=== PATIENT | male | born 1950 | race Caucasian/White ===

== ENCOUNTER 2017-11-09 14:57 | Inpatient (IN) | payer MEDICARE, OTHER ==
[~2017-11-09] VITALS: Ht 172.7 cm; Wt 73.6 kg
[2017-11-09 15:30] LABS: BASOPHILS # (AUTO) 0.1 X10'3 (0-0.2); BASOPHILS % (AUTO) 0.8 % (0-1); EOSINOPHILS # (AUTO) 0.2 X10'3 (0-0.9); EOSINOPHILS % (AUTO) 2.1 % (0-6); HEMATOCRIT 47.3 % (42.0-52.0); LYMPHOCYTES # (AUTO) 3.9 X10'3 (1.1-4.8); LYMPHOCYTES % (AUTO) 40.2 % (21-51); MEAN CORPUSCULAR HEMOGLOBIN 30.9 PG (27.0-31.0); MEAN CORPUSCULAR HGB CONC 33.8 % (33.0-36.5); MEAN CORPUSCULAR VOLUME 91.6 FL (78-98); MEAN PLATELET VOLUME 7.6 FL (7.4-10.4); MONOCYTES # (AUTO) 0.6 X10'3 (0-0.9); NEUTROPHILS # (AUTO) 4.9 X10'3 (1.8-7.7); NEUTROPHILS % (AUTO) 50.9 % (42-75); PLATELET COUNT 208 X10'3 (140-440); RED BLOOD COUNT 5.17 X10'6 (4.70-6.10); RED CELL DISTRIBUTION WIDTH 14.9 % (11.5-14.5); WHITE BLOOD COUNT 9.7 X10'3 (4.5-11.0)
[2017-11-09] MEDS ORDERED: nitroGLYCERIN 0.4mg SUBLingual tab SL PRN ×2 (15:40→17:05)
[2017-11-09] MEDS ORDERED: ondansetron/PF 4mg/2ml inj IV ONE (15:40)
[2017-11-09] MEDS ORDERED: MORPHINE 2MG in 2ml NS syringe IV PRN ×2 (15:40→17:05)
[2017-11-09 15:45] LABS: ALANINE AMINOTRANSFERASE 18 U/L (12-78); ALBUMIN 3.7 G/DL (3.4-5.0); ALBUMIN/GLOBULIN RATIO 0.9 (1.1-1.5); ALKALINE PHOSPHATASE 133 IU/L (46-116); ANION GAP 11 (8-16); ASPARTATE AMINO TRANSFERASE 17 U/L (10-37); BILIRUBIN,TOTAL 0.4 MG/DL (0.1-1.0); BLOOD UREA NITROGEN 12 MG/DL (7-18); BUN/CREATININE RATIO 12.6 (5.4-32.0); CHLORIDE 105 MMOL/L (99-107); CREATININE 0.95 MG/DL (0.60-1.10); GLUCOSE 69 MG/DL (70-104); SODIUM 143 MMOL/L (135-145); TOTAL CARBON DIOXIDE 27.1 MMOL/L (24-32); TOTAL PROTEIN 7.9 G/DL (6.4-8.2); eGFR 79 ML/MIN
[2017-11-09 16:29] LABS: PARTIAL THROMBOPLASTIN TIME 26 SECONDS (22-32); PROTHROMBIN TIME 10.2 SECONDS (9.0-12.0)
[2017-11-09] MEDS ORDERED: LISI40TA4 PO (16:44)
[2017-11-09] MEDS ORDERED: CLOP75TA15 PO (16:44)
[2017-11-09] MEDS ORDERED: magnesium Cl slow-release 64mg tablet PO PRN (17:05)
[2017-11-09] MEDS ORDERED: regadenoson 0.4mg/5ml syringe IV ONE (17:05)
[2017-11-09] MEDS ORDERED: mag hydrox/Alum hydrox/simeth 30ml oral suspension PO PRN (17:05)
[2017-11-09] MEDS ORDERED: potassium Cl 20 mEq SR tablet PO PRN ×2 (17:05)
[2017-11-09] MEDS ORDERED: magnesium 2GM in 50ml NS 50 ML IV PRN (17:05)
[2017-11-09] MEDS ORDERED: HYDROcodone/acetaminophen 10/325mg tab PO PRN (17:05)
[2017-11-09] MEDS ORDERED: magnesium 4gm in 100ml NS 100 ML IV PRN (17:05)
[2017-11-09] MEDS ORDERED: acetaminophen 325mg tablet PO PRN (17:05)
[2017-11-09] MEDS ORDERED: ondansetron/PF 4mg/2ml inj IV PRN (17:05)
[2017-11-09] MEDS ORDERED: aminophylline 250mg/10ml inj. IV PRN (17:05)
[2017-11-09] MEDS ORDERED: metoprolol tartrate 1mg/ml inj IV PRN (17:05)
[2017-11-09] MEDS ORDERED: magnesium hydroxide 30ml (MOM) UD suspension PO PRN (17:05)
[2017-11-09] MEDS ORDERED: potassium Cl 40MEQ/NS 500ml 500 ML IV PRN ×2 (17:05)
[2017-11-10] VITALS (8 sets, daily range): BP systolic 117–157; BP diastolic 62–90
[2017-11-10 03:43] LABS: BASOPHILS # (AUTO) 0.1 X10'3 (0-0.2); BASOPHILS % (AUTO) 0.9 % (0-1); EOSINOPHILS # (AUTO) 0.2 X10'3 (0-0.9); EOSINOPHILS % (AUTO) 2.9 % (0-6); HEMATOCRIT 42.9 % (42.0-52.0); HEMOGLOBIN 14.6 g/dl (14.0-17.9); LYMPHOCYTES # (AUTO) 3.3 X10'3 (1.1-4.8); LYMPHOCYTES % (AUTO) 39.8 % (21-51); MEAN CORPUSCULAR VOLUME 91.3 FL (78-98); MEAN PLATELET VOLUME 7.8 FL (7.4-10.4); MONOCYTES # (AUTO) 0.6 X10'3 (0-0.9); MONOCYTES % (AUTO) 6.7 % (2-12); NEUTROPHILS # (AUTO) 4.1 X10'3 (1.8-7.7); NEUTROPHILS % (AUTO) 49.7 % (42-75); PLATELET COUNT 175 X10'3 (140-440); RED CELL DISTRIBUTION WIDTH 14.9 % (11.5-14.5); WHITE BLOOD COUNT 8.3 X10'3 (4.5-11.0)
[2017-11-10 04:01] LABS: ALBUMIN 3.2 G/DL (3.4-5.0); ANION GAP 11 (8-16); BLOOD UREA NITROGEN 17 MG/DL (7-18); BUN/CREATININE RATIO 17.7 (5.4-32.0); CALCIUM 8.8 MG/DL (8.5-10.1); CHLORIDE 107 MMOL/L (99-107); CREATININE 0.96 MG/DL (0.60-1.10); GLUCOSE 97 MG/DL (70-104); MAGNESIUM 1.8 MG/DL (1.5-2.4); POTASSIUM 4.1 MMOL/L (3.5-5.1); SODIUM 144 MMOL/L (135-145); TOTAL CARBON DIOXIDE 26.5 MMOL/L (24-32); eGFR 78 ML/MIN
[2017-11-10] MEDS ORDERED: clopidogrel 75mg tablet PO SCH (08:00)
[2017-11-10] MEDS ORDERED: K and/or MAG REPLACEMENT MC SCH (08:00)
[2017-11-10] MEDS ORDERED: aminophylline 250mg/10ml inj. IV PRN (08:00)
[2017-11-10] MEDS ORDERED: enoxaparin 40mg/0.4ml syringe SUBCUT SCH (08:00)
[2017-11-10] MEDS ORDERED: regadenoson 0.4mg/5ml syringe IV ONE ×3 (08:00→09:50)
[2017-11-10] MEDS ORDERED: nitroGLYCERIN 0.4mg SUBLingual tab SL PRN (08:00)
[2017-11-10] MEDS ORDERED: lisinopril 20mg tablet PO SCH (08:00)
[2017-11-10] MEDS ORDERED: metoprolol tartrate 1mg/ml inj IV PRN (08:00)
[2017-11-10] MEDS ORDERED: aminophylline inj. 0 ML IV ONE (08:44)
[2017-11-10] MEDS ORDERED: normal saline 1000ml 1,000 ML IV SCH (11:05)
== END 2017-11-10 19:12 | disposition home or self-care (01) | DRG 303 ==
LOC: ER 14:57 → ED HOLD 17:03 → PCU 3S 11-10 13:37
PROVIDERS: ADMIT Internal Medicine; ATTEND Internal Medicine
PROC: 4A02XM4 Measurement of Cardiac Total Activity, External Approach (ICD-10-PCS; principal; 2017-11-10)
PROC: 3E073KZ Introduction of Other Diagnostic Substance into Coronary Artery, Percutaneous Approach (ICD-10-PCS; 2017-11-10)
DX: I25.118 Atherosclerotic heart disease of native coronary artery with other forms of angina pectoris (principal); F17.200 Nicotine dependence, unspecified, uncomplicated; I10 Essential (primary) hypertension; I25.2 Old myocardial infarction; Z95.5 Presence of coronary angioplasty implant and graft; Z79.02 Long term (current) use of antithrombotics/antiplatelets; Z79.899 Other long term (current) drug therapy; Z71.6 Tobacco abuse counseling
CPT/HCPCS: 36415; 71045; 78452; 80048; 80053; 83735; 84484; 85025; 85610; 85730; 93005; 93017; 96374; 99285; A9500; J0280; J2274; J2405; J7030

== ENCOUNTER 2017-11-15 21:48 | Emergency (ER) | payer MEDICARE, OTHER ==
[~2017-11-15] VITALS: Ht 172.7 cm; Wt 75.0 kg
[~2017-11-15 21:48] MED LIST: CLOP75TA15 PO; LISI40TA4 PO
[2017-11-16 02:08] VITALS: BP 108/71
== END 2017-11-16 02:10 | disposition home or self-care (01) ==
LOC: ER 21:48
DX: R07.89 Other chest pain (principal); I10 Essential (primary) hypertension; G89.29 Other chronic pain
CPT/HCPCS: 36415; 84484; 93005; 99285

== ENCOUNTER 2018-06-06 13:15 | Emergency (ER) | payer MEDICARE, OTHER ==
[~2018-06-06] VITALS: Ht 165.1 cm; Wt 74.0 kg
[~2018-06-06 13:15] MED LIST changes: +ASPI-1265 PO; +ATOR20TA66 PO; +COR3.125T PO; +THI100T PO
[2018-06-06 13:51] LABS: BASOPHILS # (AUTO) 0.1 X10'3 (0-0.2); BASOPHILS % (AUTO) 0.7 % (0-1); EOSINOPHILS # (AUTO) 0.2 X10'3 (0-0.9); EOSINOPHILS % (AUTO) 1.8 % (0-6); HEMATOCRIT 39.8 % (42.0-52.0); HEMOGLOBIN 13.4 g/dl (14.0-17.9); LYMPHOCYTES # (AUTO) 2.8 X10'3 (1.1-4.8); LYMPHOCYTES % (AUTO) 33.2 % (21-51); MEAN CORPUSCULAR HEMOGLOBIN 29.4 PG (27.0-31.0); MEAN CORPUSCULAR HGB CONC 33.6 % (33.0-36.5); MEAN CORPUSCULAR VOLUME 87.6 FL (78-98); MEAN PLATELET VOLUME 7.8 FL (7.4-10.4); MONOCYTES # (AUTO) 0.5 X10'3 (0-0.9); MONOCYTES % (AUTO) 6.5 % (2-12); NEUTROPHILS # (AUTO) 4.8 X10'3 (1.8-7.7); NEUTROPHILS % (AUTO) 57.8 % (42-75); PLATELET COUNT 277 X10'3 (140-440); RED BLOOD COUNT 4.54 X10'6 (4.70-6.10); RED CELL DISTRIBUTION WIDTH 15.2 % (11.5-14.5); WHITE BLOOD COUNT 8.3 X10'3 (4.5-11.0)
[2018-06-06 14:07] LABS: ALANINE AMINOTRANSFERASE 28 U/L (12-78); ALBUMIN 3.5 G/DL (3.4-5.0); ALKALINE PHOSPHATASE 105 IU/L (46-116); ANION GAP 9 (8-16); ASPARTATE AMINO TRANSFERASE 24 U/L (10-37); BILIRUBIN,TOTAL 0.3 MG/DL (0.1-1.0); BLOOD UREA NITROGEN 21 MG/DL (7-18); BUN/CREATININE RATIO 24.4 (5.4-32.0); CALCIUM 8.7 MG/DL (8.5-10.1); CHLORIDE 105 MMOL/L (99-107); CREATININE 0.86 MG/DL (0.60-1.10); GLUCOSE 98 MG/DL (70-104); POTASSIUM 3.5 MMOL/L (3.5-5.1); SODIUM 141 MMOL/L (135-145); TOTAL CARBON DIOXIDE 26.6 MMOL/L (24-32); eGFR 88 ML/MIN
[2018-06-06 14:10] LABS: PARTIAL THROMBOPLASTIN TIME 26 SECONDS (22-32); PROTHROMBIN TIME 10.4 SECONDS (9.0-12.0)
[2018-06-06] MEDS ORDERED: ketorolac trometh. 30mg/ml inj. IV ONE (15:20)
[2018-06-06] MEDS ORDERED: morphine 4 MG/ML inj SYRINge IV PRN (15:20)
[2018-06-06 18:12] VITALS: BP 101/65
== END 2018-06-06 18:14 | disposition home or self-care (01) ==
LOC: ER 13:16
DX: R07.9 Chest pain, unspecified (principal); I25.10 Atherosclerotic heart disease of native coronary artery without angina pectoris; I10 Essential (primary) hypertension; G89.29 Other chronic pain; Z98.62 Peripheral vascular angioplasty status; F17.200 Nicotine dependence, unspecified, uncomplicated; Z79.82 Long term (current) use of aspirin; Z79.899 Other long term (current) drug therapy
CPT/HCPCS: 36415; 71045; 80053; 84484; 85025; 85610; 85730; 93005; 96374; 96375; 99285; J1885; J2270

== ENCOUNTER 2018-07-30 20:36 | Emergency (ER) | payer MEDICARE, OTHER ==
[~2018-07-30] VITALS: Ht 172.7 cm; Wt 73.0 kg
[2018-07-30] MEDS ORDERED: ibuprofen tablet 400 MG TABLET PO ONE (21:25)
[2018-07-30 21:55] VITALS: BP 157/78
== END 2018-07-30 21:57 | disposition home or self-care (01) ==
LOC: ER 20:37
DX: M94.0 Chondrocostal junction syndrome [Tietze] (principal); I25.10 Atherosclerotic heart disease of native coronary artery without angina pectoris; I10 Essential (primary) hypertension; G89.29 Other chronic pain; F17.200 Nicotine dependence, unspecified, uncomplicated; Z98.61 Coronary angioplasty status; Z90.49 Acquired absence of other specified parts of digestive tract; Z79.82 Long term (current) use of aspirin; Z79.899 Other long term (current) drug therapy
CPT/HCPCS: 93005; 99283

== ENCOUNTER 2018-08-12 12:45 | Emergency (ER) | payer MEDICARE, OTHER ==
[~2018-08-12] VITALS: Ht 172.7 cm; Wt 73.6 kg
[2018-08-12] MEDS ORDERED: aspirin 81mg tab.chew PO ONE (13:05)
[2018-08-12 14:13] LABS: BASOPHILS # (AUTO) 0.1 X10'3 (0-0.2); BASOPHILS % (AUTO) 0.5 % (0-1); EOSINOPHILS # (AUTO) 0.2 X10'3 (0-0.9); EOSINOPHILS % (AUTO) 1.9 % (0-6); HEMATOCRIT 49.4 % (42.0-52.0); HEMOGLOBIN 16.2 g/dl (14.0-17.9); LYMPHOCYTES # (AUTO) 4.2 X10'3 (1.1-4.8); MEAN CORPUSCULAR HEMOGLOBIN 29.1 PG (27.0-31.0); MEAN CORPUSCULAR HGB CONC 32.8 % (33.0-36.5); MEAN CORPUSCULAR VOLUME 88.8 FL (78-98); MEAN PLATELET VOLUME 7.5 FL (7.4-10.4); MONOCYTES # (AUTO) 0.5 X10'3 (0-0.9); MONOCYTES % (AUTO) 4.5 % (2-12); NEUTROPHILS # (AUTO) 5.1 X10'3 (1.8-7.7); NEUTROPHILS % (AUTO) 51.1 % (42-75); PLATELET COUNT 244 X10'3 (140-440); RED BLOOD COUNT 5.56 X10'6 (4.70-6.10); WHITE BLOOD COUNT 9.9 X10'3 (4.5-11.0)
[2018-08-12 14:30] LABS: ALANINE AMINOTRANSFERASE 18 U/L (12-78); ALBUMIN 4.4 G/DL (3.4-5.0); ALBUMIN/GLOBULIN RATIO 0.9 (1.1-1.5); ALKALINE PHOSPHATASE 174 IU/L (46-116); ANION GAP 13 (8-16); ASPARTATE AMINO TRANSFERASE 13 U/L (10-37); BILIRUBIN,TOTAL 0.2 MG/DL (0.1-1.0); BLOOD UREA NITROGEN 13 MG/DL (7-18); BUN/CREATININE RATIO 14.6 (5.4-32.0); CALCIUM 8.8 MG/DL (8.5-10.1); CHLORIDE 103 MMOL/L (99-107); CREATININE 0.89 MG/DL (0.60-1.10); GLUCOSE 82 MG/DL (70-104); POTASSIUM 4.5 MMOL/L (3.5-5.1); SODIUM 142 MMOL/L (135-145); TOTAL CARBON DIOXIDE 26.2 MMOL/L (24-32); TOTAL PROTEIN 9.2 G/DL (6.4-8.2); eGFR 85 ML/MIN
[2018-08-12 14:39] LABS: MAGNESIUM 2.2 MG/DL (1.5-2.4)
[2018-08-12 15:27] VITALS: BP 120/70
== END 2018-08-12 15:31 | disposition home or self-care (01) ==
LOC: ER 12:45
DX: R07.89 Other chest pain (principal); F10.129 Alcohol abuse with intoxication, unspecified; I25.10 Atherosclerotic heart disease of native coronary artery without angina pectoris; I10 Essential (primary) hypertension; G89.29 Other chronic pain; Z98.61 Coronary angioplasty status; Z90.49 Acquired absence of other specified parts of digestive tract; Z98.890 Other specified postprocedural states; Z79.82 Long term (current) use of aspirin; Z79.01 Long term (current) use of anticoagulants; Z79.899 Other long term (current) drug therapy; Y90.9 Presence of alcohol in blood, level not specified
CPT/HCPCS: 36415; 71045; 80053; 83735; 83880; 84484; 85025; 93005; 99284

== ENCOUNTER 2018-09-21 11:17 | Emergency (ER) | payer MEDICARE, OTHER ==
[~2018-09-21] VITALS: Ht 172.7 cm; Wt 72.7 kg
--- NOTE | 2018-09-21 12:15 | NUR ---
assumed care of pt from Misha SALMERON
[2018-09-21] MEDS ORDERED: acetaminophen 325mg tablet PO ONE (12:55)
[2018-09-21] MEDS ORDERED: LIDOcaine 5% patch TP ONE (12:55)
[2018-09-21] MEDS ORDERED: ketorolac trometh. 30mg/ml inj. IM ONE (12:55)
--- NOTE | 2018-09-21 13:26 | NUR ---
labs drawn, pt up at bedside to use urinal without assist
[2018-09-21 13:38] LABS: BASOPHILS # (AUTO) 0.1 X10'3 (0-0.2); BASOPHILS % (AUTO) 0.8 % (0-1); EOSINOPHILS # (AUTO) 0.2 X10'3 (0-0.9); EOSINOPHILS % (AUTO) 2.1 % (0-6); HEMATOCRIT 41.3 % (42.0-52.0); HEMOGLOBIN 13.9 g/dl (14.0-17.9); LYMPHOCYTES # (AUTO) 2.8 X10'3 (1.1-4.8); LYMPHOCYTES % (AUTO) 35.3 % (21-51); MEAN CORPUSCULAR HEMOGLOBIN 29.8 PG (27.0-31.0); MEAN CORPUSCULAR HGB CONC 33.8 g/dL (33.0-36.5); MEAN CORPUSCULAR VOLUME 88.2 FL (78-98); MEAN PLATELET VOLUME 7.3 FL (7.4-10.4); MONOCYTES # (AUTO) 0.5 X10'3 (0-0.9); MONOCYTES % (AUTO) 5.6 % (2-12); NEUTROPHILS # (AUTO) 4.5 X10'3 (1.8-7.7); NEUTROPHILS % (AUTO) 56.2 % (42-75); PLATELET COUNT 252 X10'3 (140-440); RED BLOOD COUNT 4.69 X10'6 (4.70-6.10); WHITE BLOOD COUNT 8.1 X10'3 (4.5-11.0)
[2018-09-21 13:49] LABS: ALANINE AMINOTRANSFERASE 17 U/L (12-78); ALBUMIN 3.7 G/DL (3.4-5.0); ALBUMIN/GLOBULIN RATIO 0.9 (1.1-1.5); ALKALINE PHOSPHATASE 113 IU/L (46-116); ANION GAP 9 (8-16); ASPARTATE AMINO TRANSFERASE 10 U/L (10-37); BILIRUBIN,TOTAL 0.3 MG/DL (0.1-1.0); BLOOD UREA NITROGEN 26 MG/DL (7-18); BUN/CREATININE RATIO 33.8 (5.4-32.0); CALCIUM 8.5 MG/DL (8.5-10.1); CHLORIDE 105 MMOL/L (99-107); CREATININE 0.77 MG/DL (0.60-1.10); GLUCOSE 94 MG/DL (70-104); POTASSIUM 3.9 MMOL/L (3.5-5.1); SODIUM 141 MMOL/L (135-145); TOTAL CARBON DIOXIDE 27.1 MMOL/L (24-32); TOTAL PROTEIN 7.8 G/DL (6.4-8.2); eGFR > 90 ML/MIN
[2018-09-21 13:53] LABS: CLARITY,URINE CLEAR (Clear); COLOR,URINE STRAW (Yellow); GLUCOSE, URINE NEGATIVE (Neg); KETONES,URINE NEGATIVE (Neg); LEUKOCYTE ESTERASE ,URINE TRACE (Neg); NITRITES, URINE NEGATIVE (Neg); OCCULT BLOOD,URINE NEGATIVE (Neg); PH,URINE 5.5 (4.8-8.0); PROTEIN,URINE NEGATIVE (Neg); UROBILINOGEN,URINE 0.2 E.U/dL (0.2-1.0)
[2018-09-21 14:02] LABS: UA COLLECTION TYPE CLN CATCH MIDSTREAM
[2018-09-21 14:03] LABS: BACTERIA,URINE FEW /HPF (Neg); RBC,URINE 0-2 /HPF (0-2); SQUAMOUS EPITHELIAL CELL,UR FEW /LPF (FEW); WBC,URINE 0-4 /HPF (0-4)
[2018-09-21] MEDS ORDERED: ACET-812 PO (14:10)
[2018-09-21] MEDS ORDERED: FLO0.4C PO (14:10)
[2018-09-21 14:23] VITALS: BP 102/64
--- NOTE | 2018-09-21 14:24 | NUR ---
PT SAYS HE HAS NO RIDE HOME, IS BLIND, HIS CANNOT DRIVE AND HIS NEIGHBOR DRINKS TOO MUCH "I DON'T TRUST HIM" AND HAS NO MONEY FOR A TAXI, PT WOULD ALSO LIKE TO STOP AT 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
== END 2018-09-21 14:27 | disposition home or self-care (01) ==
LOC: ER 11:17
DX: G89.29 Other chronic pain (principal); M54.5 Low back pain; I25.10 Atherosclerotic heart disease of native coronary artery without angina pectoris; I10 Essential (primary) hypertension; Z98.61 Coronary angioplasty status; Z90.49 Acquired absence of other specified parts of digestive tract; Z98.890 Other specified postprocedural states; Z79.82 Long term (current) use of aspirin; Z79.01 Long term (current) use of anticoagulants; Z79.899 Other long term (current) drug therapy
CPT/HCPCS: 36415; 74176; 80053; 81001; 85025; 87088; 96372; 99284; J1885

== ENCOUNTER 2018-10-02 19:44 | Emergency (ER) | payer MEDICARE, OTHER ==
[~2018-10-02] VITALS: Ht 167.6 cm; Wt 65.0 kg
[~2018-10-02 19:44] MED LIST changes: +ACET-812 PO; +FLO0.4C PO
[2018-10-02 19:50] VITALS: BP 163/88
--- NOTE | 2018-10-02 22:10 | NUR ---
NO RESPONSE FROM LOBBY AFTER 3 ATTEMOTS TO ROOM. CALL PLACED TO NUMBER ON FILE WITH MESSAGE LEFT EXPRESSING CONCERN FOR PATIENTS WELL BEING, AND ENCOURAGEMENT TO RETURN TO THE ED FOR EVAL. DR. ASHTON INFORMED.
== END 2018-10-02 22:28 | disposition left against medical advice (07) ==
LOC: ER 19:45
DX: R15.9 Full incontinence of feces (principal); Z53.21 Procedure and treatment not carried out due to patient leaving prior to being seen by health care provider

== ENCOUNTER 2019-01-13 23:29 | Emergency (ER) | payer MEDICARE, OTHER ==
[~2019-01-13] VITALS: Ht 172.7 cm; Wt 75.0 kg
[~2019-01-13 23:29] MED LIST changes: -ACET-812 PO; -FLO0.4C PO
--- NOTE | 2019-01-13 23:40 | NUR ---
Pt requested blanket and pillow. warm blanket and pillow provided.
[2019-01-13] MEDS ORDERED: LISI-600 PO (23:52)
[2019-01-14 01:59] VITALS: BP 85/60
== END 2019-01-14 02:15 | disposition home or self-care (01) ==
LOC: ER 23:30
DX: S00.81XA Abrasion of other part of head, initial encounter (principal); I25.10 Atherosclerotic heart disease of native coronary artery without angina pectoris; I10 Essential (primary) hypertension; G89.29 Other chronic pain; M54.9 Dorsalgia, unspecified; Z95.1 Presence of aortocoronary bypass graft; Z79.82 Long term (current) use of aspirin; W01.198A Fall on same level from slipping, tripping and stumbling with subsequent striking against other object, initial encounter; Y93.89 Activity, other specified; Y92.89 Other specified places as the place of occurrence of the external cause; Y99.8 Other external cause status
CPT/HCPCS: 70450; 72125; 99284

== ENCOUNTER 2019-07-10 12:11 | Emergency (ER) | payer MEDICARE ==
[~2019-07-10] VITALS: Ht 172.7 cm; Wt 72.0 kg
[~2019-07-10 12:11] MED LIST changes: -CLOP75TA15 PO; -COR3.125T PO; +LISI-600 PO; -LISI40TA4 PO; -THI100T PO
[2019-07-10 13:24] LABS: CLARITY,URINE CLEAR (Clear); COLOR,URINE YELLOW (Yellow); GLUCOSE, URINE NEGATIVE (Neg); KETONES,URINE NEGATIVE (Neg); LEUKOCYTE ESTERASE ,URINE NEGATIVE (Neg); NITRITES, URINE NEGATIVE (Neg); OCCULT BLOOD,URINE NEGATIVE (Neg); PROTEIN,URINE NEGATIVE (Neg); UROBILINOGEN,URINE 0.2 E.U/dL (0.2-1.0)
[2019-07-10 13:27] LABS: UA COLLECTION TYPE CLN CATCH MIDSTREAM
[2019-07-10] MEDS ORDERED: normal saline 1000ML IV soln IVB ONE (14:15)
[2019-07-10 14:22] LABS: BASOPHILS # (AUTO) 0.1 X10'3 (0-0.2); BASOPHILS % (AUTO) 1.2 % (0-1); EOSINOPHILS # (AUTO) 0.1 X10'3 (0-0.9); EOSINOPHILS % (AUTO) 0.6 % (0-6); HEMATOCRIT 43.3 % (42.0-52.0); HEMOGLOBIN 14.3 g/dl (14.0-17.9); LYMPHOCYTES # (AUTO) 3.2 X10'3 (1.1-4.8); LYMPHOCYTES % (AUTO) 33.5 % (21-51); MEAN CORPUSCULAR HEMOGLOBIN 30.1 PG (27.0-31.0); MEAN CORPUSCULAR HGB CONC 33.1 g/dL (33.0-36.5); MEAN CORPUSCULAR VOLUME 91.1 FL (78-98); MEAN PLATELET VOLUME 7.7 FL (7.4-10.4); MONOCYTES # (AUTO) 0.9 X10'3 (0-0.9); NEUTROPHILS # (AUTO) 5.3 X10'3 (1.8-7.7); NEUTROPHILS % (AUTO) 55.7 % (42-75); PLATELET COUNT 128 X10'3 (140-440); RED BLOOD COUNT 4.75 X10'6 (4.70-6.10); RED CELL DISTRIBUTION WIDTH 15.7 % (11.5-14.5); WHITE BLOOD COUNT 9.6 X10'3 (4.5-11.0)
[2019-07-10 14:35] LABS: ALANINE AMINOTRANSFERASE 17 U/L (12-78); ALBUMIN 3.2 G/DL (3.4-5.0); ALBUMIN/GLOBULIN RATIO 0.8 (1.1-1.5); ALKALINE PHOSPHATASE 144 IU/L (46-116); ANION GAP 10 (8-16); ASPARTATE AMINO TRANSFERASE 20 U/L (10-37); BILIRUBIN,TOTAL 0.6 MG/DL (0.1-1.0); BLOOD UREA NITROGEN 10 MG/DL (7-18); BUN/CREATININE RATIO 11.8 (5.4-32.0); CALCIUM 8.6 MG/DL (8.5-10.1); CHLORIDE 103 MMOL/L (99-107); CREATININE 0.85 MG/DL (0.60-1.10); ETHANOL 0.159 GM/DL (0.0-0.010); GLUCOSE 98 MG/DL (70-104); LIPASE 165 U/L (73-393); MAGNESIUM 1.9 MG/DL (1.5-2.4); POTASSIUM 4.1 MMOL/L (3.5-5.1); SODIUM 140 MMOL/L (135-145); TOTAL CARBON DIOXIDE 27.1 MMOL/L (24-32); TOTAL PROTEIN 7.3 G/DL (6.4-8.2); eGFR 89 ML/MIN
[2019-07-10 14:40] LABS: URINE AMPHETAMINE SCREEN NEGATIVE (Neg); URINE BARBITUATE SCREEN NEGATIVE (Neg); URINE BENZODIAZEPINES SCREEN NEGATIVE (Neg); URINE CANNABINOID SCREEN NEGATIVE (Neg); URINE COCAINE SCREEN NEGATIVE (Neg); URINE METHADONE SCREEN NEGATIVE (Neg); URINE OPIATE SCREEN NEGATIVE (Neg); URINE PHENCYCLIDINE SCREEN NEGATIVE (Neg)
[2019-07-10] MEDS ORDERED: ketorolac trometh. 30mg/ml inj. IV ONE (14:50)
[2019-07-10 15:42] VITALS: BP 140/82
== END 2019-07-10 15:47 | disposition home or self-care (01) ==
LOC: ER 12:11
DX: M79.605 Pain in left leg (principal); R19.7 Diarrhea, unspecified; F10.920 Alcohol use, unspecified with intoxication, uncomplicated; I25.10 Atherosclerotic heart disease of native coronary artery without angina pectoris; I10 Essential (primary) hypertension; G89.29 Other chronic pain; Z95.5 Presence of coronary angioplasty implant and graft; Z90.49 Acquired absence of other specified parts of digestive tract; Z98.890 Other specified postprocedural states; Z79.82 Long term (current) use of aspirin; Z79.899 Other long term (current) drug therapy; Y90.0 Blood alcohol level of less than 20 mg/100 ml; X58.XXXA Exposure to other specified factors, initial encounter; Y93.89 Activity, other specified; Y92.89 Other specified places as the place of occurrence of the external cause; Y99.8 Other external cause status
CPT/HCPCS: 36415; 80053; 80305; 80320; 81003; 83690; 83735; 85025; 96361; 96374; 99284; J1885; J7030

== ENCOUNTER 2021-06-02 11:37 | Inpatient (IN) | payer OTHER, BC ==
[~2021-06-02] VITALS: Ht 172.7 cm; Wt 80.7 kg
[~2021-06-02 11:37] MED LIST changes: -LISI-600 PO; +LISI20TA28 PO
[2021-06-02] MEDS: heparin 25,000 UNIT/250ml bag 250 ML IV SCH ×2 (12:15→22:03)
[2021-06-02] MEDS ORDERED: heparin 10,000 units/1 ML INJ IV ONE ×3 (12:15→14:10)
[2021-06-02] MEDS ORDERED: iohexol 350MG/ML 100ml bottle IV ONE (12:16)
[2021-06-02] MEDS ORDERED: morphine 10mg/ml inj. IV ONE (12:20)
[2021-06-02] MEDS ORDERED: iohexol 350 MG/ML 50ML vial IV ONE (12:26)
[2021-06-02 12:54] LABS: BASOPHILS # (AUTO) 0.2 X10'3 (0-0.2); BASOPHILS % (AUTO) 0.6 % (0-1); EOSINOPHILS % (AUTO) 0.2 % (0-6); HEMATOCRIT 30.4 % (42.0-52.0); HEMOGLOBIN 9.5 g/dl (14.0-17.9); LYMPHOCYTES # (AUTO) 2.8 X10'3 (1.1-4.8); LYMPHOCYTES % (AUTO) 10.2 % (21-51); MEAN CORPUSCULAR HEMOGLOBIN 24.3 PG (27.0-31.0); MEAN CORPUSCULAR HGB CONC 31.1 g/dL (33.0-36.5); MEAN CORPUSCULAR VOLUME 78.2 FL (78-98); MEAN PLATELET VOLUME 8.1 FL (7.4-10.4); MONOCYTES # (AUTO) 2.4 X10'3 (0-0.9); MONOCYTES % (AUTO) 8.7 % (2-12); NEUTROPHILS # (AUTO) 22.1 X10'3 (1.8-7.7); NEUTROPHILS % (AUTO) 80.3 % (42-75); PLATELET COUNT 347 X10'3 (140-440); RED BLOOD COUNT 3.89 X10'6 (4.70-6.10); RED CELL DISTRIBUTION WIDTH 14.9 % (11.5-14.5)
[2021-06-02 13:00] LABS: WHITE BLOOD COUNT 27.5 X10'3 (4.5-11.0)
[2021-06-02 13:06] LABS: PARTIAL THROMBOPLASTIN TIME 21 SECONDS (22-32)
[2021-06-02 13:08] LABS: ALANINE AMINOTRANSFERASE 11 U/L (12-78); ALBUMIN 2.6 G/DL (3.4-5.0); ALBUMIN/GLOBULIN RATIO 0.5 (1.1-1.5); ALKALINE PHOSPHATASE 92 IU/L (46-116); ANION GAP 14 (8-16); ASPARTATE AMINO TRANSFERASE 17 U/L (10-37); BILIRUBIN,TOTAL 0.3 MG/DL (0.1-1.0); BLOOD UREA NITROGEN 19 MG/DL (7-18); BUN/CREATININE RATIO 18.4 (5.4-32.0); CALCIUM 10.4 MG/DL (8.5-10.1); CHLORIDE 101 MMOL/L (99-107); CREATININE 1.03 MG/DL (0.60-1.10); GLUCOSE 179 MG/DL (70-104); POTASSIUM 3.9 MMOL/L (3.5-5.1); SODIUM 139 MMOL/L (135-145); TOTAL PROTEIN 7.5 G/DL (6.4-8.2); eGFR 71 ML/MIN
[2021-06-02 13:28] LABS: TOTAL CELLS COUNTED 100
[2021-06-02 13:29] LABS: MICROCYTOSIS 1+; PLATELET ESTIMATE NORMAL
[2021-06-02 13:30] LABS: BURR CELLS FEW
[2021-06-02] MEDS ORDERED: METR-159 PO (13:32)
[2021-06-02] MEDS ORDERED: HYDR4TAB45 PO (13:36)
[2021-06-02] MEDS ORDERED: acetaminophen 650mg rectal suppository RC PRN (14:10)
[2021-06-02] MEDS ORDERED: PERFLUTREN PROTEIN-A MICROSPHR (Optison) 0.22 MG/ML 3ML VIAL IV PRN (14:10)
[2021-06-02] MEDS ORDERED: potassium Cl 40MEQ/1/2NS 520ml 520 ML IV PRN ×2 (14:10)
[2021-06-02] MEDS ORDERED: ondansetron/PF 4mg/2ml inj IV PRN (14:10)
[2021-06-02] MEDS ORDERED: heparin 10,000 units/1 ML INJ IV PRN (14:10)
[2021-06-02] MEDS ORDERED: acetaminophen 325mg tablet PO PRN ×2 (14:10)
[2021-06-02] MEDS ORDERED: magnesium Cl slow-release 64mg tablet PO PRN (14:10)
[2021-06-02] MEDS ORDERED: heparin 25,000 UNIT/250ml bag 250 ML IV SCH (14:10)
[2021-06-02] MEDS ORDERED: mag hydrox/Alum hydrox/simeth 30ml oral suspension PO PRN (14:10)
[2021-06-02] MEDS ORDERED: potassium Cl 20 mEq SR tablet PO PRN ×2 (14:10)
[2021-06-02] MEDS ORDERED: magnesium hydroxide 30ml (MOM) UD suspension PO PRN (14:10)
[2021-06-02] MEDS ORDERED: HYDROcodone/acetaminophen 5mg/325mg tablet PO PRN (14:10)
[2021-06-02] MEDS ORDERED: magnesium 4gm in 100ml NS 100 ML IV PRN (14:10)
[2021-06-02] MEDS ORDERED: magnesium 2GM in 50ml NS 50 ML IV PRN (14:10)
[2021-06-02] MEDS: heparin 10,000 units/1 ML INJ IV PRN ×2 (14:22→21:57)
[2021-06-02] MEDS ORDERED: LEVO750T46 PO (14:41)
[2021-06-02 15:37] LABS: CLARITY,URINE SLIGHTLY CLOUDY (Clear); COLOR,URINE YELLOW (Yellow); GLUCOSE, URINE NEGATIVE (Neg); KETONES,URINE NEGATIVE (Neg); NITRITES, URINE NEGATIVE (Neg); OCCULT BLOOD,URINE TRACE-INTACT (Neg); PROTEIN,URINE NEGATIVE (Neg); UA COLLECTION TYPE VOIDED
[2021-06-02 15:38] LABS: LEUKOCYTE ESTERASE ,URINE NEGATIVE (Neg); UROBILINOGEN,URINE 0.2 E.U/dL (0.2-1.0)
[2021-06-02 15:42] LABS: SQUAMOUS EPITHELIAL CELL,UR FEW /LPF (FEW); YEAST MODERATE /HPF (NEGATIVE)
[2021-06-02 15:43] LABS: BACTERIA,URINE 1+ /HPF (Neg); RBC,URINE 0-2 /HPF (0-2)
--- NOTE | 2021-06-02 16:34 | NUR ---
CALL FROM LAB REJECTING STOOL FOR C-DIFF ITS TO FORMED
[2021-06-02] MEDS: HYDROcodone/acetaminophen 10/325mg tab PO PRN (16:49)
--- NOTE | 2021-06-02 16:52 | NUR ---
DR VINCENT IN TO SEE PT
--- NOTE | 2021-06-02 17:56 | NUR ---
CALLED TO GIVE REPORT TO SURG THEY ASKED TO CALL BACK AFTER CHANGE OF EMORY
--- NOTE | 2021-06-02 18:10 | NUR ---
Called powder mixer for report on patient. Patient to follow shortly.
--- NOTE | 2021-06-02 18:30 | NUR ---
Patient arrived to unit, A&O, in no distress.
[2021-06-02 18:45] VITALS: BP 99/59
[2021-06-02 19:00] VITALS: BP 90/59
[2021-06-02] MEDS: normal saline 1000ml 1,000 ML IV SCH (19:37)
[2021-06-02] MEDS: K and/or MAG REPLACEMENT MC SCH (20:00)
[2021-06-02] MEDS: docusate sod 100mg capsule PO SCH (20:00)
[2021-06-02] MEDS ORDERED: temazepam 15mg capsule PO PRN (21:00)
[2021-06-02] MEDS: HYDROmorphone inj. 0.5 MG/0.5 ML DISP.SYRIN IV PRN (22:07)
[2021-06-03] VITALS (10 sets, daily range): BP systolic 62–145; BP diastolic 38–70
[2021-06-03] MEDS: ceFAZolin/D5W- 1GM premix 50 ML IV SCH ×2 (00:02→07:54)
[2021-06-03] MEDS: HYDROcodone/acetaminophen 10/325mg tab PO PRN (00:09)
[2021-06-03] MEDS: normal saline 1000ml 1,000 ML IV SCH ×4 (00:10→23:19)
--- NOTE | 2021-06-03 03:27 | NUR ---
I have reviewed students assessment finding, and agree mostly. I have documented the changes that I made.
[2021-06-03] MEDS: HYDROmorphone inj. 0.5 MG/0.5 ML DISP.SYRIN IV PRN ×2 (05:03→12:41)
[2021-06-03 05:04] LABS: BASOPHILS # (AUTO) 0.1 X10'3 (0-0.2); BASOPHILS % (AUTO) 0.7 % (0-1); EOSINOPHILS # (AUTO) 0.2 X10'3 (0-0.9); EOSINOPHILS % (AUTO) 1.1 % (0-6); LYMPHOCYTES # (AUTO) 2.9 X10'3 (1.1-4.8); LYMPHOCYTES % (AUTO) 17.1 % (21-51); MEAN CORPUSCULAR HEMOGLOBIN 24.4 PG (27.0-31.0); MEAN CORPUSCULAR HGB CONC 31.1 g/dL (33.0-36.5); MEAN CORPUSCULAR VOLUME 78.6 FL (78-98); MEAN PLATELET VOLUME 7.7 FL (7.4-10.4); MONOCYTES # (AUTO) 1.5 X10'3 (0-0.9); NEUTROPHILS # (AUTO) 12.2 X10'3 (1.8-7.7); NEUTROPHILS % (AUTO) 72.1 % (42-75); PLATELET COUNT 294 X10'3 (140-440); RED CELL DISTRIBUTION WIDTH 15.5 % (11.5-14.5); WHITE BLOOD COUNT 16.9 X10'3 (4.5-11.0)
[2021-06-03 05:22] LABS: ALANINE AMINOTRANSFERASE 14 U/L (12-78); ALBUMIN 2.4 G/DL (3.4-5.0); ALBUMIN/GLOBULIN RATIO 0.5 (1.1-1.5); ALKALINE PHOSPHATASE 92 IU/L (46-116); ANION GAP 8 (8-16); ASPARTATE AMINO TRANSFERASE 10 U/L (10-37); BILIRUBIN,TOTAL 0.2 MG/DL (0.1-1.0); BLOOD UREA NITROGEN 17 MG/DL (7-18); BUN/CREATININE RATIO 16.8 (5.4-32.0); CALCIUM 10.3 MG/DL (8.5-10.1); CHLORIDE 102 MMOL/L (99-107); CHOL/HDL RATIO 4.4 (0.00-4.99); CHOLESTEROL 146 MG/DL (0-200); CREATININE 1.01 MG/DL (0.60-1.10); GLUCOSE 112 MG/DL (70-104); HDL CHOLESTEROL 33 MG/DL (35-60); LDL CHOLESTEROL 84 MG/DL (50-100); POTASSIUM 3.6 MMOL/L (3.5-5.1); SODIUM 137 MMOL/L (135-145); TOTAL CARBON DIOXIDE 26.7 MMOL/L (24-32); TOTAL PROTEIN 7.3 G/DL (6.4-8.2); TRIGLYCERIDES 122 MG/DL (20-135); eGFR 73 ML/MIN
[2021-06-03] MEDS: heparin 10,000 units/1 ML INJ IV PRN ×2 (06:10→12:50)
[2021-06-03] MEDS: heparin 25,000 UNIT/250ml bag 250 ML IV SCH ×2 (06:17→17:46)
--- NOTE | 2021-06-03 07:00 | NUR ---
Problems reprioritized. Patient report given, questions answered & plan of care reviewed with Priscila SALMERON.
--- NOTE | 2021-06-03 07:20 | NUR ---
Patient in room GIO 360. I have received report from Palma SALMERON and had the opportunity to ask questions and assume patient care.
[2021-06-03] MEDS: docusate sod 100mg capsule PO SCH ×2 (07:54→20:00)
[2021-06-03] MEDS: K and/or MAG REPLACEMENT MC SCH ×2 (08:00→20:00)
--- NOTE | 2021-06-03 12:30 | NUR ---
Spoke w/ Dr Garcia re: WOCN request for pt's hunter to be shaved for WOCN care. stated ok to not shave pt at this time, but recommends admin Dilaudid before attempts to wash the the face/hunter in attempts to "gently" remove accumulated debris on chin and neck, at this time. FAVIOLA Francois, notified.
--- NOTE | 2021-06-03 12:41 | NUR ---
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
[2021-06-03] MEDS ORDERED: iohexol 300mg/ml 100ml inj. ONE (13:42)
[2021-06-03] MEDS ORDERED: LIDOcaine 1%/PF 5ML 10 MG/ML VIAL ONE (13:42)
[2021-06-03] MEDS ORDERED: naloxone 0.4 mg/ml inj ONE ×2 (14:00→14:22)
[2021-06-03] MEDS ORDERED: atropine 0.1 mg/ml 5ml syringe ONE (14:00)
[2021-06-03] MEDS ORDERED: sod chloride 0.9% 10ml flush syringe IV ONE (14:00)
[2021-06-03] MEDS ORDERED: heparin 1,000 UNITS/NS 500ml 500 ML ONE (14:07)
[2021-06-03] MEDS ORDERED: midazolam 1 mg/ML 2ml injection ONE (14:10)
[2021-06-03] MEDS ORDERED: fentaNYL/PF 50MCG/1 ML 2ML syringe ONE (14:10)
[2021-06-03] MEDS ORDERED: flumazenil 0.1 mg/ml inj. IV ONE (14:22)
[2021-06-03] MEDS ORDERED: ondansetron/PF 4mg/2ml inj IV PRN (14:45)
[2021-06-03] MEDS ORDERED: sodium phosphate inj. 15 MMOL in dextrose 5%-water 250 ML IV PRN (14:45)
[2021-06-03] MEDS ORDERED: magnesium hydroxide 30ml (MOM) UD suspension PO PRN (14:45)
[2021-06-03] MEDS ORDERED: ipratropium/albuterol 3ml nebule NEB PRN (14:45)
[2021-06-03] MEDS ORDERED: potassium Cl 20 mEq SR tablet PO PRN ×2 (14:45)
[2021-06-03] MEDS ORDERED: sodium phosphate inj. 30 MMOL in dextrose 5%-water 250 ML IV PRN (14:45)
[2021-06-03] MEDS ORDERED: magnesium 4gm in 100ml NS 100 ML IV PRN (14:45)
[2021-06-03] MEDS ORDERED: magnesium Cl slow-release 64mg tablet PO PRN (14:45)
[2021-06-03] MEDS ORDERED: magnesium 2GM in 50ml NS 50 ML IV PRN (14:45)
[2021-06-03] MEDS ORDERED: Neutra Phos packet PO PRN (14:45)
[2021-06-03] MEDS ORDERED: acetaminophen 325mg tablet PO PRN (14:45)
[2021-06-03] MEDS ORDERED: LIDOcaine 2% 10ml TOPICAL JELLY (Urojet) TP ONE (14:45)
--- NOTE | 2021-06-03 14:50 | NUR ---
received pt to room 2045. report received from angio crew. pt placed on bedside cardiac, bp, pulse ox monitors. 500cc fluid bolus given for sbp of 60's. pt awake alert and attempting to pull et tube. pt restrained. md at bedside.
[2021-06-03] MEDS ORDERED: fentaNYL/PF 50MCG/1 ML 2ML syringe IV PRN (14:55)
[2021-06-03] MEDS ORDERED: midazolam 100mg in NS 100ml 100 ML IV PRN (14:55)
--- NOTE | 2021-06-03 15:00 | NUR ---
Patient went for angio, coded there and was transfer to ICU. report given to Martha SALMERON
--- NOTE | 2021-06-03 15:33 | NUR ---
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 Pt hx tobacco abuse growing mass to lower jaw w/ invasion to oropharynx resulting in dysphagia though refuses surgery per MD note. Pt now intubated s/p code blue this afternoon pending NG placement per RN. MAP 89 this AM prior to code currently 46 per EMR. TF recs below given pt needs on vent. IF MAP remains 40-50's consider holding EN until hemodynamic stability ensured per MD discretion. Will continue to monitor for nutrition support needs. Rec: 1. Continuous NGTF per MD using Vital AF at 75ml/hr goal; to provide 1800ml volume, 2160 kcals, 1458ml water, and 135g protein. 2. additional water flush per leadlighter; serum Na 137 monitor for Na trends and hydration needs 3. IF MAP remains 40-50's consider holding EN until hemodynamic stability ensured per MD discretion 4. PALB Q /; daily wts 5. routine bowel care 6. upon extubation; advance diet as medically indicated per HAT CLEANER/MD recs to regular. Prior BSS postponed given procedure today and code blue Addendum: 06/03/21 at [address] Amended: Links added.
[2021-06-03 16:12] LABS: ABG OXYGEN SATURATION 97.9 % (94-97); ABG PCO2 (T) 31.1 mmHg (35.0-48.0); ABG PO2 (T) 113.9 mmHg (75.0-100.0); FCOHb 0.3 % (0.0-3.9); FMetHb 0.7 % (0.0-1.5); FO2Hb 96.9 % (94-97); PATIENT TEMPERATURE 36.5; PEEP 5 cm H2O; RESPIRATORY RATE 12 b/min; TIDAL VOLUME 549 mL; TOTAL HEMOGLOBIN 7.6 G/dl (14.0-18.0)
[2021-06-03 16:16] LABS: OXYGEN SATURATION (MIXED VEN) 64.6 % (60-80); PO2 MIXED VENOUS (TEMP COR) 36.9 mmHg (35-46)
[2021-06-03] MEDS: FENTANYL-0.9 % NACL/PF 100 ML IV PRN (16:16)
--- NOTE | 2021-06-03 17:30 | NUR ---
md placed cvl and art to the left groin.
--- NOTE | 2021-06-03 18:30 | NUR ---
Patient in room ICU 2045. I have received report from Amaya SALMERON and had the opportunity to ask questions and assume patient care.
[2021-06-03] MEDS ORDERED: piperacillin/tazo 4.5gm/100ml 100 ML IV SCH (20:00)
[2021-06-04] VITALS (29 sets, daily range): BP systolic 101–182; BP diastolic 48–74
[2021-06-04] MEDS: piperacillin/tazo 4.5gm/100ml 100 ML IV SCH ×4 (00:43→23:09)
[2021-06-04] MEDS: FENTANYL-0.9 % NACL/PF 100 ML IV PRN ×3 (03:11→23:10)
[2021-06-04 04:18] LABS: ABG BASE EXCESS -3.6 mmol/L (-2.0-2.0); ABG HCO3 20.4 mmol/L (22.0-26.0); ABG OXYGEN SATURATION 94.3 % (94-97); ABG PCO2 (T) 32.1 mmHg (35.0-48.0); ABG PO2 (T) 75.8 mmHg (75.0-100.0); FCOHb 0.1 % (0.0-3.9); FMetHb 0.3 % (0.0-1.5); FO2Hb 93.9 % (94-97); PEEP 5 cm H2O; RESPIRATORY RATE 12 b/min; TIDAL VOLUME 500 mL; TOTAL HEMOGLOBIN 7.7 G/dl (14.0-18.0)
[2021-06-04 04:22] LABS: BASOPHILS # (AUTO) 0.1 X10'3 (0-0.2); BASOPHILS % (AUTO) 0.6 % (0-1); EOSINOPHILS # (AUTO) 0.1 X10'3 (0-0.9); EOSINOPHILS % (AUTO) 0.5 % (0-6); LYMPHOCYTES # (AUTO) 2.7 X10'3 (1.1-4.8); LYMPHOCYTES % (AUTO) 18.8 % (21-51); MEAN CORPUSCULAR HEMOGLOBIN 24.6 PG (27.0-31.0); MEAN CORPUSCULAR HGB CONC 32.1 g/dL (33.0-36.5); MEAN CORPUSCULAR VOLUME 76.7 FL (78-98); MEAN PLATELET VOLUME 7.9 FL (7.4-10.4); MONOCYTES # (AUTO) 1.1 X10'3 (0-0.9); MONOCYTES % (AUTO) 7.4 % (2-12); NEUTROPHILS # (AUTO) 10.6 X10'3 (1.8-7.7); NEUTROPHILS % (AUTO) 72.7 % (42-75); PLATELET COUNT 283 X10'3 (140-440); RED BLOOD COUNT 2.78 X10'6 (4.70-6.10); RED CELL DISTRIBUTION WIDTH 15.2 % (11.5-14.5); WHITE BLOOD COUNT 14.6 X10'3 (4.5-11.0)
[2021-06-04 04:40] LABS: ALANINE AMINOTRANSFERASE 12 U/L (12-78); ALBUMIN 1.9 G/DL (3.4-5.0); ALBUMIN/GLOBULIN RATIO 0.5 (1.1-1.5); ALKALINE PHOSPHATASE 72 IU/L (46-116); ANION GAP 11 (8-16); ASPARTATE AMINO TRANSFERASE 27 U/L (10-37); BILIRUBIN,TOTAL 0.2 MG/DL (0.1-1.0); BLOOD UREA NITROGEN 13 MG/DL (7-18); BUN/CREATININE RATIO 14.8 (5.4-32.0); CHLORIDE 108 MMOL/L (99-107); CREATININE 0.88 MG/DL (0.60-1.10); GLUCOSE 101 MG/DL (70-104); MAGNESIUM 1.7 MG/DL (1.5-2.4); PHOSPHORUS 4.6 MG/DL (2.3-4.5); POTASSIUM 3.6 MMOL/L (3.5-5.1); PREALBUMIN 10.4 MG/DL (19-36); SODIUM 143 MMOL/L (135-145); TOTAL CARBON DIOXIDE 23.8 MMOL/L (24-32); eGFR 85 ML/MIN
[2021-06-04 04:48] LABS: HEMATOCRIT 21.4 % (42.0-52.0); HEMOGLOBIN 6.8 g/dl (14.0-17.9)
--- NOTE | 2021-06-04 05:05 | NUR ---
Received critical H&H. ICU TELE-Med MD notified. Order received to re-check H&H and draw Type and Screen. No outward signs of bleeding, VSS. Will continue to monitor.
[2021-06-04] MEDS: vancomycin/NS 1 GM ADD-VANTAGE 250 ML IV SCH ×2 (05:17→17:08)
[2021-06-04 05:32] LABS: MEAN CORPUSCULAR HEMOGLOBIN 24.7 PG (27.0-31.0); MEAN CORPUSCULAR HGB CONC 31.7 g/dL (33.0-36.5); MEAN CORPUSCULAR VOLUME 77.9 FL (78-98); MEAN PLATELET VOLUME 8.1 FL (7.4-10.4); PLATELET COUNT 277 X10'3 (140-440); RED BLOOD COUNT 2.78 X10'6 (4.70-6.10); RED CELL DISTRIBUTION WIDTH 14.6 % (11.5-14.5); WHITE BLOOD COUNT 14.2 X10'3 (4.5-11.0)
[2021-06-04 05:39] LABS: HEMATOCRIT 21.7 % (42.0-52.0); HEMOGLOBIN 6.9 g/dl (14.0-17.9)
--- NOTE | 2021-06-04 05:53 | NUR ---
Received critical H&H again, ICU TELE-Med notified. PT's VSS. Type and screen is in process. PT does not have signed consent on file. Will endorse to oncoming nurse.
--- NOTE | 2021-06-04 06:23 | NUR ---
Problems reprioritized. Patient report given, questions answered & plan of care reviewed with Amanda SALMERON.
[2021-06-04] MEDS: normal saline 1000ml 1,000 ML IV SCH (07:19)
[2021-06-04] MEDS: pantoprazole 40 MG vial IV SCH (07:44)
[2021-06-04] MEDS: docusate sod 100mg capsule PO SCH (07:46)
[2021-06-04] MEDS: K and/or MAG REPLACEMENT MC SCH ×2 (07:46→20:00)
[2021-06-04] MEDS: heparin 25,000 UNIT/250ml bag 250 ML IV SCH (11:44)
[2021-06-04 13:51] LABS: CREATINE KINASE 164 U/L (39-308)
[2021-06-04 18:43] LABS: PARTIAL THROMBOPLASTIN TIME 51 SECONDS (22-32)
[2021-06-04] MEDS: acetaminophen 325mg tablet PO PRN (20:08)
[2021-06-04] MEDS: docusate sodium 100mg/10ml UD cup OGT SCH (20:08)
[2021-06-04] MEDS: lactobacillus rhamnosus 10,000 MMU CELLS/CAPSULE PO SCH (20:08)
[2021-06-04] MEDS: mineral oil/petrolatum ophthal oint EACHEYE SCH (20:15)
[2021-06-05] VITALS (23 sets, daily range): BP systolic 105–190; BP diastolic 51–88
[2021-06-05 00:50] LABS: PARTIAL THROMBOPLASTIN TIME 38 SECONDS (22-32)
[2021-06-05] MEDS: heparin 10,000 units/1 ML INJ IV PRN (02:28)
[2021-06-05] MEDS: mineral oil/petrolatum ophthal oint EACHEYE SCH ×4 (02:54→20:00)
[2021-06-05 03:12] LABS: BASOPHILS # (AUTO) 0.1 X10'3 (0-0.2); BASOPHILS % (AUTO) 0.7 % (0-1); EOSINOPHILS # (AUTO) 0.1 X10'3 (0-0.9); EOSINOPHILS % (AUTO) 0.9 % (0-6); HEMOGLOBIN 7.1 g/dl (14.0-17.9); LYMPHOCYTES # (AUTO) 2.1 X10'3 (1.1-4.8); LYMPHOCYTES % (AUTO) 13.8 % (21-51); MEAN CORPUSCULAR HEMOGLOBIN 25.5 PG (27.0-31.0); MEAN CORPUSCULAR HGB CONC 32.5 g/dL (33.0-36.5); MEAN CORPUSCULAR VOLUME 78.5 FL (78-98); MEAN PLATELET VOLUME 8.1 FL (7.4-10.4); MONOCYTES # (AUTO) 1.2 X10'3 (0-0.9); MONOCYTES % (AUTO) 8.1 % (2-12); NEUTROPHILS # (AUTO) 11.7 X10'3 (1.8-7.7); NEUTROPHILS % (AUTO) 76.5 % (42-75); PLATELET COUNT 241 X10'3 (140-440); RED BLOOD COUNT 2.79 X10'6 (4.70-6.10); RED CELL DISTRIBUTION WIDTH 15.2 % (11.5-14.5); WHITE BLOOD COUNT 15.3 X10'3 (4.5-11.0)
[2021-06-05 03:19] LABS: HEMATOCRIT 21.9 % (42.0-52.0)
[2021-06-05 03:39] LABS: ALANINE AMINOTRANSFERASE 15 U/L (12-78); ALBUMIN 1.5 G/DL (3.4-5.0); ALBUMIN/GLOBULIN RATIO 0.4 (1.1-1.5); ALKALINE PHOSPHATASE 53 IU/L (46-116); ANION GAP 13 (8-16); ASPARTATE AMINO TRANSFERASE 36 U/L (10-37); BILIRUBIN,TOTAL 0.7 MG/DL (0.1-1.0); BLOOD UREA NITROGEN 12 MG/DL (7-18); BUN/CREATININE RATIO 10.4 (5.4-32.0); CALCIUM 8.1 MG/DL (8.5-10.1); CHLORIDE 111 MMOL/L (99-107); CREATININE 1.15 MG/DL (0.60-1.10); GLUCOSE 103 MG/DL (70-104); MAGNESIUM 1.5 MG/DL (1.5-2.4); SODIUM 146 MMOL/L (135-145); TOTAL PROTEIN 5.2 G/DL (6.4-8.2); eGFR 63 ML/MIN
[2021-06-05 03:50] LABS: POTASSIUM 2.8 MMOL/L (3.5-5.1)
[2021-06-05 04:16] LABS: ABG BASE EXCESS -2.2 mmol/L (-2.0-2.0); ABG HCO3 22.5 mmol/L (22.0-26.0); ABG PO2 (T) 68.5 mmHg (75.0-100.0); FCOHb 0.7 % (0.0-3.9); FO2Hb 92.3 % (94-97); PATIENT TEMPERATURE 36.8; PEEP 5 cm H2O; RESPIRATORY RATE 12 b/min; TIDAL VOLUME 500 mL; TOTAL HEMOGLOBIN 8.6 G/dl (14.0-18.0)
[2021-06-05] MEDS ORDERED: VANCOMYCIN LEVEL IV ONE (04:30)
[2021-06-05] MEDS: FENTANYL-0.9 % NACL/PF 100 ML IV PRN ×4 (04:47→21:12)
[2021-06-05] MEDS: heparin 25,000 UNIT/250ml bag 250 ML IV SCH (04:55)
--- NOTE | 2021-06-05 06:21 | NUR ---
Bedside shift report given to oncoming nurse Addison.
--- NOTE | 2021-06-05 06:51 | NUR ---
Patient in room ICU 2045. I have received report from Ronen SALMERON and had the opportunity to ask questions and assume patient care.
[2021-06-05] MEDS: vancomycin/NS 1 GM ADD-VANTAGE 250 ML IV SCH ×2 (07:59→16:40)
[2021-06-05] MEDS: docusate sodium 100mg/10ml UD cup OGT SCH ×2 (07:59→21:20)
[2021-06-05] MEDS: pantoprazole 40 MG vial IV SCH (07:59)
[2021-06-05] MEDS: lactobacillus rhamnosus 10,000 MMU CELLS/CAPSULE PO SCH ×2 (08:00→21:20)
[2021-06-05] MEDS: K and/or MAG REPLACEMENT MC SCH ×2 (08:00→20:00)
--- NOTE | 2021-06-05 10:00 | NUR ---
Fam Note Daughter called for update. She was distraught about her fathers condition and changes she was unaware of. Dr. Wright called her shortly after her call here. He discussed his leg condition and recommended comfort measures as did the surgeon's note. Daughter then called back on WhatsApp. I showed her her father's face and leg and she mentioned that the doctor had recommended comfort care. She is on her way to [place] with ETA of 7 PM.
[2021-06-05] MEDS: acetaminophen 325mg tablet PO PRN (10:06)
[2021-06-05] MEDS: normal saline 1000ml 1,000 ML IV SCH ×2 (10:07→23:19)
[2021-06-05] MEDS: piperacillin/tazo 4.5gm/100ml 100 ML IV SCH ×2 (11:26→16:34)
--- NOTE | 2021-06-05 12:08 | NUR ---
F/u 06/05: Noted pt has not received TF yet this admit as NPO for possible OR vs comfort measures pending further discussion at this time per EMR. Addendum: 06/05/21 at [address] Amended: Links added.
[2021-06-05] MEDS ORDERED: lactulose 20gm/30ml cup PO PRN (14:45)
[2021-06-05 14:57] LABS: PARTIAL THROMBOPLASTIN TIME 62 SECONDS (22-32)
--- NOTE | 2021-06-05 18:03 | NUR ---
Problems reprioritized. Patient report given, questions answered & plan of care reviewed with Cvalyn RN.
[2021-06-06] VITALS (23 sets, daily range): BP systolic 71–145; BP diastolic 42–83
[2021-06-06] MEDS: heparin 25,000 UNIT/250ml bag 250 ML IV SCH (00:09)
[2021-06-06] MEDS: FENTANYL-0.9 % NACL/PF 100 ML IV PRN ×4 (00:29→23:03)
[2021-06-06] MEDS: normal saline 1000ml 1,000 ML IV SCH ×4 (00:29→15:19)
[2021-06-06] MEDS: piperacillin/tazo 4.5gm/100ml 100 ML IV SCH ×3 (00:31→16:50)
[2021-06-06 00:54] LABS: PARTIAL THROMBOPLASTIN TIME 46 SECONDS (22-32)
[2021-06-06] MEDS: mineral oil/petrolatum ophthal oint EACHEYE SCH ×4 (01:56→20:00)
[2021-06-06 02:50] LABS: BASOPHILS # (AUTO) 0.1 X10'3 (0-0.2); BASOPHILS % (AUTO) 0.5 % (0-1); EOSINOPHILS # (AUTO) 0.1 X10'3 (0-0.9); EOSINOPHILS % (AUTO) 0.2 % (0-6); HEMATOCRIT 29.1 % (42.0-52.0); HEMOGLOBIN 9.1 g/dl (14.0-17.9); LYMPHOCYTES # (AUTO) 1.4 X10'3 (1.1-4.8); LYMPHOCYTES % (AUTO) 6.2 % (21-51); MEAN CORPUSCULAR HEMOGLOBIN 25.3 PG (27.0-31.0); MEAN CORPUSCULAR HGB CONC 31.3 g/dL (33.0-36.5); MEAN CORPUSCULAR VOLUME 80.6 FL (78-98); MEAN PLATELET VOLUME 8.2 FL (7.4-10.4); MONOCYTES # (AUTO) 1.4 X10'3 (0-0.9); MONOCYTES % (AUTO) 6.1 % (2-12); NEUTROPHILS # (AUTO) 19.2 X10'3 (1.8-7.7); PLATELET COUNT 243 X10'3 (140-440); RED BLOOD COUNT 3.61 X10'6 (4.70-6.10); WHITE BLOOD COUNT 22.1 X10'3 (4.5-11.0)
[2021-06-06 03:02] LABS: PARTIAL THROMBOPLASTIN TIME 50 SECONDS (22-32)
[2021-06-06 03:07] LABS: ALANINE AMINOTRANSFERASE 21 U/L (12-78); ALBUMIN 1.5 G/DL (3.4-5.0); ALBUMIN/GLOBULIN RATIO 0.4 (1.1-1.5); ALKALINE PHOSPHATASE 64 IU/L (46-116); ANION GAP 13 (8-16); ASPARTATE AMINO TRANSFERASE 44 U/L (10-37); BILIRUBIN,TOTAL 0.6 MG/DL (0.1-1.0); BLOOD UREA NITROGEN 19 MG/DL (7-18); BUN/CREATININE RATIO 7.2 (5.4-32.0); CALCIUM 8.7 MG/DL (8.5-10.1); CHLORIDE 109 MMOL/L (99-107); CREATININE 2.63 MG/DL (0.60-1.10); GLUCOSE 113 MG/DL (70-104); MAGNESIUM 1.6 MG/DL (1.5-2.4); PHOSPHORUS 5.1 MG/DL (2.3-4.5); SODIUM 142 MMOL/L (135-145); TOTAL CARBON DIOXIDE 19.9 MMOL/L (24-32); TOTAL PROTEIN 5.4 G/DL (6.4-8.2); eGFR 24 ML/MIN
[2021-06-06 03:52] LABS: BURR CELLS FEW; PLATELET ESTIMATE NORMAL; TOTAL CELLS COUNTED 100
[2021-06-06] MEDS: NORepinephrine 8mg/ 250ml NS 250 ML IV SCH ×2 (04:00→05:41)
[2021-06-06 04:01] LABS: ABG BASE EXCESS -8.1 mmol/L (-2.0-2.0); ABG HCO3 17.5 mmol/L (22.0-26.0); ABG OXYGEN SATURATION 94.2 % (94-97); ABG PCO2 (T) 37.1 mmHg (35.0-48.0); ABG PO2 (T) 80.5 mmHg (75.0-100.0); FCOHb 0.1 % (0.0-3.9); FMetHb 0.4 % (0.0-1.5); FO2Hb 93.7 % (94-97); PATIENT TEMPERATURE 37.6; PEEP 5 cm H2O; RESPIRATORY RATE 12 b/min; TIDAL VOLUME 500 mL; TOTAL HEMOGLOBIN 7.5 G/dl (14.0-18.0)
--- NOTE | 2021-06-06 06:18 | NUR ---
Patient in room ICU 2045. I have received report from Ronen SALMERON and had the opportunity to ask questions and assume patient care.
--- NOTE | 2021-06-06 06:22 | NUR ---
Bedside shift report given to Rn Addison.
[2021-06-06] MEDS: vancomycin/NS 1 GM ADD-VANTAGE 250 ML IV SCH (06:28)
[2021-06-06] MEDS: pantoprazole 40 MG vial IV SCH (07:40)
[2021-06-06] MEDS: hydrocortisone sod succ/PF 100mg/2ml inj. IV SCH ×2 (07:40→15:51)
[2021-06-06] MEDS: docusate sodium 100mg/10ml UD cup OGT SCH ×2 (07:41→22:48)
[2021-06-06] MEDS: lactobacillus rhamnosus 10,000 MMU CELLS/CAPSULE PO SCH ×2 (07:41→22:48)
[2021-06-06] MEDS: K and/or MAG REPLACEMENT MC SCH ×2 (08:20→20:00)
[2021-06-06] MEDS: dexmedetomidine/D5W 100mL 100 ML IV SCH ×2 (09:52→19:43)
--- NOTE | 2021-06-06 10:00 | NUR ---
at bedside Dr. Cuevas here to see pt. Discussed condition and he asked for the pts daughter to join us at bedside. Anna came in and he explained pts condition and options and he answered her questions. She remained after he left and asked several other questions. Her final question before leaving was what "comfort care" meant. I explained that process. She said she'd return after a bit. Order from MD were carried out.
[2021-06-06] MEDS ORDERED: VANCOMYCIN LEVEL IV ONE (16:30)
--- NOTE | 2021-06-06 16:40 | NUR ---
MD visit Pts daughter here to see pt. discussed options and need for daughters to agree on how to proceed - amputation and cancer treatment vs comfort care. MD explained both amputation and chemo treatment possible paths. He spoke via phone with both daughters, Anna in person. Discussed DNR status as well in the event of code.
--- NOTE | 2021-06-06 18:27 | NUR ---
Problems reprioritized. Patient report given, questions answered & plan of care reviewed with Adore SALMERON.
--- NOTE | 2021-06-06 20:00 | NUR ---
hob elevated 30 degrees
[2021-06-06 20:21] LABS: PARTIAL THROMBOPLASTIN TIME 34 SECONDS (22-32)
[2021-06-07] VITALS (24 sets, daily range): BP systolic 97–211; BP diastolic 51–91
--- NOTE | 2021-06-07 00:56 | NUR ---
Fentanyl decreased to 25 mcg/hr.
[2021-06-07] MEDS: mineral oil/petrolatum ophthal oint EACHEYE SCH ×4 (02:00→20:48)
[2021-06-07] MEDS: normal saline 1000ml 1,000 ML IV SCH ×5 (03:30→23:19)
[2021-06-07 04:54] LABS: ABG BASE EXCESS -9.6 mmol/L (-2.0-2.0); ABG HCO3 15.1 mmol/L (22.0-26.0); ABG OXYGEN SATURATION 93.7 % (94-97); ABG PCO2 (T) 28.7 mmHg (35.0-48.0); ABG PO2 (T) 70.9 mmHg (75.0-100.0); ALLEN'S TEST POSITIVE; FCOHb 0.2 % (0.0-3.9); FMetHb 0.3 % (0.0-1.5); FO2Hb 93.2 % (94-97); PATIENT TEMPERATURE 36.8; PEEP 5 cm H2O; RESPIRATORY RATE 12 b/min; TIDAL VOLUME 500 mL; TOTAL HEMOGLOBIN 9.6 G/dl (14.0-18.0)
[2021-06-07] MEDS: dexmedetomidine/D5W 100mL 100 ML IV SCH (06:58)
[2021-06-07 07:06] LABS: BASOPHILS # (AUTO) 0.1 X10'3 (0-0.2); BASOPHILS % (AUTO) 0.4 % (0-1); EOSINOPHILS # (AUTO) 0.1 X10'3 (0-0.9); EOSINOPHILS % (AUTO) 0.2 % (0-6); HEMATOCRIT 26.9 % (42.0-52.0); HEMOGLOBIN 8.4 g/dl (14.0-17.9); LYMPHOCYTES # (AUTO) 2.4 X10'3 (1.1-4.8); LYMPHOCYTES % (AUTO) 7.8 % (21-51); MEAN CORPUSCULAR HEMOGLOBIN 25.3 PG (27.0-31.0); MEAN CORPUSCULAR HGB CONC 31.2 g/dL (33.0-36.5); MEAN PLATELET VOLUME 8.4 FL (7.4-10.4); MONOCYTES # (AUTO) 1.9 X10'3 (0-0.9); MONOCYTES % (AUTO) 6.2 % (2-12); NEUTROPHILS # (AUTO) 25.9 X10'3 (1.8-7.7); NEUTROPHILS % (AUTO) 85.4 % (42-75); PLATELET COUNT 349 X10'3 (140-440); RED BLOOD COUNT 3.32 X10'6 (4.70-6.10); RED CELL DISTRIBUTION WIDTH 16.5 % (11.5-14.5)
[2021-06-07 07:14] LABS: ALANINE AMINOTRANSFERASE 31 U/L (12-78); ALBUMIN 1.4 G/DL (3.4-5.0); ALBUMIN/GLOBULIN RATIO 0.3 (1.1-1.5); ALKALINE PHOSPHATASE 73 IU/L (46-116); ANION GAP 15 (8-16); ASPARTATE AMINO TRANSFERASE 64 U/L (10-37); BILIRUBIN,TOTAL 0.3 MG/DL (0.1-1.0); BLOOD UREA NITROGEN 32 MG/DL (7-18); BUN/CREATININE RATIO 7.3 (5.4-32.0); CALCIUM 8.8 MG/DL (8.5-10.1); CHLORIDE 108 MMOL/L (99-107); CREATININE 4.41 MG/DL (0.60-1.10); GLUCOSE 126 MG/DL (70-104); PHOSPHORUS 7.2 MG/DL (2.3-4.5); POTASSIUM 4.6 MMOL/L (3.5-5.1); SODIUM 138 MMOL/L (135-145); TOTAL CARBON DIOXIDE 15.3 MMOL/L (24-32); TOTAL PROTEIN 5.8 G/DL (6.4-8.2); eGFR 13 ML/MIN
[2021-06-07 07:27] LABS: WHITE BLOOD COUNT 30.3 X10'3 (4.5-11.0)
[2021-06-07 07:43] LABS: TOTAL CELLS COUNTED 100
[2021-06-07 07:45] LABS: ACANTHOCYTES 1+; ANISOCYTOSIS 1+; BURR CELLS 1+; PLATELET ESTIMATE NORMAL; SCHISTOCYTES FEW
[2021-06-07 07:53] LABS: PARTIAL THROMBOPLASTIN TIME 114 SECONDS (22-32)
[2021-06-07] MEDS: K and/or MAG REPLACEMENT MC SCH ×2 (08:00→20:00)
[2021-06-07] MEDS: piperacillin/tazo 4.5gm/100ml 100 ML IV SCH ×3 (08:42→20:58)
[2021-06-07] MEDS: docusate sodium 100mg/10ml UD cup OGT SCH ×2 (08:42→20:45)
[2021-06-07] MEDS: hydrocortisone sod succ/PF 100mg/2ml inj. IV SCH ×3 (08:42→16:31)
[2021-06-07] MEDS: lactobacillus rhamnosus 10,000 MMU CELLS/CAPSULE PO SCH ×2 (08:42→20:45)
[2021-06-07] MEDS: FENTANYL-0.9 % NACL/PF 100 ML IV PRN ×6 (09:30→23:57)
[2021-06-07] MEDS: heparin 25,000 UNIT/250ml bag 250 ML IV SCH (10:37)
[2021-06-07] MEDS: pantoprazole 40 MG vial IV SCH (10:44)
--- NOTE | 2021-06-07 13:49 | NUR ---
f/u 06/07: Pt remains intubated and not receiving TF d/t possible comfort care measures. Per RN, pt's daughter to come today and discuss code status. LBM 06/02. Will continue to monitor and make recommendations as appropriate. Rec: 1. IF TF, Continuous NGTF per MD using Vital AF at 75ml/hr goal; to provide 1800ml volume, 2160 kcals, 1458ml water, and 135g protein. 2. IF TF additional water flush per toolsmith; monitor serum Na trends and hydration needs 3. IF MAP remains 40-50's consider holding EN until hemodynamic stability ensured per MD discretion 4. PALB Q /; daily wts 5. routine bowel care Addendum: 06/07/21 at [address] Amended: Links added.
[2021-06-07] MEDS ORDERED: vancomycin/NS 1 GM ADD-VANTAGE 250 ML X 1 DOSE IV PRN (15:15)
[2021-06-07 16:09] LABS: PARTIAL THROMBOPLASTIN TIME 51 SECONDS (22-32)
[2021-06-07] MEDS: NORepinephrine 8mg/ 250ml NS 250 ML IV SCH (16:09)
[2021-06-08] VITALS (23 sets, daily range): BP systolic 145–219; BP diastolic 65–131
[2021-06-08] MEDS: hydrocortisone sod succ/PF 100mg/2ml inj. IV SCH ×4 (01:08→23:46)
[2021-06-08 01:25] LABS: PARTIAL THROMBOPLASTIN TIME 114 SECONDS (22-32)
[2021-06-08] MEDS: dexmedetomidine/D5W 100mL 100 ML IV SCH (01:25)
--- NOTE | 2021-06-08 01:49 | NUR ---
PTT 114, Heparin turned off per protocol
[2021-06-08] MEDS: mineral oil/petrolatum ophthal oint EACHEYE SCH ×2 (02:00→07:56)
[2021-06-08] MEDS: heparin 25,000 UNIT/250ml bag 250 ML IV SCH ×2 (02:53→14:30)
[2021-06-08] MEDS: VANCOMYCIN LEVEL IV SCH (03:00)
[2021-06-08 03:13] LABS: ABG BASE EXCESS -10.2 mmol/L (-2.0-2.0); ABG HCO3 13.7 mmol/L (22.0-26.0); ABG OXYGEN SATURATION 95.4 % (94-97); ABG PCO2 (T) 24.1 mmHg (35.0-48.0); ALLEN'S TEST POSITIVE; FCOHb 0.3 % (0.0-3.9); FMetHb 0.4 % (0.0-1.5); FO2Hb 94.7 % (94-97); PATIENT TEMPERATURE 36.5; PEEP 5 cm H2O; TOTAL HEMOGLOBIN 9.4 G/dl (14.0-18.0)
--- NOTE | 2021-06-08 03:40 | NUR ---
Heparin off for 2 hours per protocol. Started back @ 1100 u/hr.
[2021-06-08 04:07] LABS: BASOPHILS % (AUTO) 0 % (0-1); EOSINOPHILS % (AUTO) 0 % (0-6); HEMATOCRIT 27.1 % (42.0-52.0); HEMOGLOBIN 8.5 g/dl (14.0-17.9); LYMPHOCYTES # (AUTO) 1.5 X10'3 (1.1-4.8); LYMPHOCYTES % (AUTO) 4.9 % (21-51); MEAN CORPUSCULAR HEMOGLOBIN 25.2 PG (27.0-31.0); MEAN CORPUSCULAR HGB CONC 31.5 g/dL (33.0-36.5); MEAN PLATELET VOLUME 8.3 FL (7.4-10.4); MONOCYTES # (AUTO) 1.2 X10'3 (0-0.9); MONOCYTES % (AUTO) 4.2 % (2-12); NEUTROPHILS % (AUTO) 90.9 % (42-75); PLATELET COUNT 374 X10'3 (140-440); RED BLOOD COUNT 3.39 X10'6 (4.70-6.10); RED CELL DISTRIBUTION WIDTH 16.9 % (11.5-14.5)
[2021-06-08 04:19] LABS: WHITE BLOOD COUNT 29.7 X10'3 (4.5-11.0)
[2021-06-08 04:45] LABS: ALANINE AMINOTRANSFERASE 40 U/L (12-78); ALBUMIN 1.5 G/DL (3.4-5.0); ALBUMIN/GLOBULIN RATIO 0.3 (1.1-1.5); ALKALINE PHOSPHATASE 64 IU/L (46-116); ANION GAP 17 (8-16); ASPARTATE AMINO TRANSFERASE 87 U/L (10-37); BILIRUBIN,TOTAL 0.4 MG/DL (0.1-1.0); BLOOD UREA NITROGEN 40 MG/DL (7-18); BUN/CREATININE RATIO 7.5 (5.4-32.0); CALCIUM 8.6 MG/DL (8.5-10.1); CHLORIDE 107 MMOL/L (99-107); CREATININE 5.34 MG/DL (0.60-1.10); GLUCOSE 136 MG/DL (70-104); PHOSPHORUS 7.2 MG/DL (2.3-4.5); POTASSIUM 4.7 MMOL/L (3.5-5.1); SODIUM 139 MMOL/L (135-145); TOTAL CARBON DIOXIDE 15.1 MMOL/L (24-32); TOTAL PROTEIN 6.1 G/DL (6.4-8.2); eGFR 11 ML/MIN
[2021-06-08 04:54] LABS: BANDS% (MANUAL) 9.3 % (0-10); METAMYLEOCYTES% (MANUAL) 3.3 % (0-0); MONOCYTES % (MANUAL) 1.3 % (2-12); MYELOCYTES % (MANUAL) 1.3 % (0-0); NEUTROPHILS % (MANUAL) 80.7 % (42-75); NUCLEATED RED BLOOD CELLS 1 /100WBC (0-0); TOTAL CELLS COUNTED 150
[2021-06-08 04:56] LABS: ACANTHOCYTES FEW
[2021-06-08 04:57] LABS: ANISOCYTOSIS 1+; BURR CELLS 1+; PLATELET ESTIMATE NORMAL; POLYCHROMASIA FEW
[2021-06-08 04:58] LABS: SCHISTOCYTES FEW; VANCOMYCIN,RANDOM 50.4 UG/ML
[2021-06-08] MEDS: FENTANYL-0.9 % NACL/PF 100 ML IV PRN ×2 (06:28→06:56)
[2021-06-08] MEDS: normal saline 1000ml 1,000 ML IV SCH (07:19)
[2021-06-08] MEDS: piperacillin/tazo 4.5gm/100ml 100 ML IV SCH ×2 (07:56→20:48)
[2021-06-08] MEDS: lactobacillus rhamnosus 10,000 MMU CELLS/CAPSULE PO SCH ×2 (07:56→20:00)
[2021-06-08] MEDS: docusate sodium 100mg/10ml UD cup OGT SCH ×2 (07:56→20:00)
[2021-06-08] MEDS: K and/or MAG REPLACEMENT MC SCH ×2 (07:57→20:00)
[2021-06-08] MEDS: pantoprazole 40 MG vial IV SCH (08:05)
[2021-06-08 08:09] LABS: PARTIAL THROMBOPLASTIN TIME 56 SECONDS (22-32)
[2021-06-08] MEDS: NORepinephrine 8mg/ 250ml NS 250 ML IV SCH (09:56)
[2021-06-08] MEDS: sevelamer carbonate 0.8gm powder pkt PO SCH ×2 (12:16→18:00)
[2021-06-08 14:22] LABS: PARTIAL THROMBOPLASTIN TIME 53 SECONDS (22-32)
[2021-06-08] MEDS ORDERED: labetalol 20mg/4ml (5mg/ml) syringe IV ONE (15:12)
[2021-06-08] MEDS ORDERED: labetalol 20mg/4ml (5mg/ml) syringe IV PRN (15:25)
--- NOTE | 2021-06-08 18:15 | NUR ---
Patient in room ICU 2045. I have received report from Amanda Casanovaand had the opportunity to ask questions and assume patient care.
[2021-06-08] MEDS: fentaNYL/PF 50MCG/1 ML 2ML syringe IV PRN (20:35)
[2021-06-08] MEDS: morphine 2 MG/ML inj. syringe IV PRN ×2 (21:35→23:47)
[2021-06-09] VITALS: BP 181/97
[2021-06-09 01:00] VITALS: BP 197/100
[2021-06-09 02:00] VITALS: BP 202/115
[2021-06-09] MEDS: fentaNYL/PF 50MCG/1 ML 2ML syringe IV PRN (02:24)
[2021-06-09 03:00] VITALS: BP 208/106
[2021-06-09] MEDS: VANCOMYCIN LEVEL IV SCH (03:38)
[2021-06-09 04:00] VITALS: BP 180/98
[2021-06-09] MEDS: morphine 2 MG/ML inj. syringe IV PRN (04:12)
[2021-06-09 04:22] LABS: ALANINE AMINOTRANSFERASE 47 U/L (12-78); ALBUMIN 1.8 G/DL (3.4-5.0); ALBUMIN/GLOBULIN RATIO 0.4 (1.1-1.5); ALKALINE PHOSPHATASE 78 IU/L (46-116); ANION GAP 23 (8-16); ASPARTATE AMINO TRANSFERASE 93 U/L (10-37); BILIRUBIN,TOTAL 0.4 MG/DL (0.1-1.0); BLOOD UREA NITROGEN 50 MG/DL (7-18); BUN/CREATININE RATIO 8.1 (5.4-32.0); CALCIUM 8.9 MG/DL (8.5-10.1); CHLORIDE 105 MMOL/L (99-107); CREATININE 6.17 MG/DL (0.60-1.10); GLUCOSE 207 MG/DL (70-104); MAGNESIUM 2.1 MG/DL (1.5-2.4); POTASSIUM 4.8 MMOL/L (3.5-5.1); SODIUM 142 MMOL/L (135-145); TOTAL PROTEIN 6.9 G/DL (6.4-8.2); eGFR 9 ML/MIN
[2021-06-09 04:28] LABS: TOTAL CARBON DIOXIDE 13.7 MMOL/L (24-32)
[2021-06-09 04:29] LABS: VANCOMYCIN,RANDOM 44.4 UG/ML
[2021-06-09 04:30] LABS: PARTIAL THROMBOPLASTIN TIME 109 SECONDS (22-32)
--- NOTE | 2021-06-09 04:40 | NUR ---
PATIENT PTT 106. PER PROTOL HEPARIN GTTS WILL BE HELD FOR 2 HOURS. WILL RESTART 0637. PROVIDER AND DAY RN WILL BE MADE AWARE.
--- NOTE | 2021-06-09 05:24 | NUR ---
RN IS TO DOCUMENT YES TO ALL APPLICABLE AREAS Pronouncement of : 1. Time Physician Notified:[id number] 2. Date of :09/06/21 3. Time of : 455 4. DNR/Withdraw life support documented:YES 5. Monitor strip has been placed on chart:YES 6. Assessment process is of one-minute duration and includes following criteria: a) Patient is unresponsive to all stimuli:Y b) Pupils fixed and non-reactive:Y c) Auscultation of precordium reveals absence of heart tones:Y d) Auscultation of lungs reveals absence of breath sounds:Y e) Absence of blood pressure / all vital signs:Y f) QRS complexes are not present on monitor / EKG strip:Y g) Pacer spikes without capture: 4. Comments:Dr. Escobar made aware pts daughter contacted pt to go to [place] [facility]
--- NOTE | 2021-06-09 05:30 | NUR ---
care performed. Belongings including cell phone next to patient will be given to mortuary.
== END 2021-06-09 05:00 | DRG 299 ==
LOC: ER 11:38 → ED HOLD 14:17 → SUR 3N 18:32 → ICU 2S 06-03 14:20
PROVIDERS: ADMIT Family Medicine; ATTEND Family Medicine
PROC: B4201ZZ Computerized Tomography (CT Scan) of Abdominal Aorta using Low Osmolar Contrast (ICD-10-PCS; 2021-06-02)
PROC: B42H1ZZ Computerized Tomography (CT Scan) of Bilateral Lower Extremity Arteries using Low Osmolar Contrast (ICD-10-PCS; 2021-06-02)
PROC: B42H1ZZ Computerized Tomography (CT Scan) of Bilateral Lower Extremity Arteries using Low Osmolar Contrast (ICD-10-PCS; 2021-06-02)
PROC: 5A1955Z Respiratory Ventilation, Greater than 96 Consecutive Hours (ICD-10-PCS; principal; 2021-06-03)
PROC: 0BH17EZ Insertion of Endotracheal Airway into Trachea, Via Natural or Artificial Opening (ICD-10-PCS; 2021-06-03)
PROC: 04HY32Z Insertion of Monitoring Device into Lower Artery, Percutaneous Approach (ICD-10-PCS; 2021-06-03)
PROC: 4A133B1 Monitoring of Arterial Pressure, Peripheral, Percutaneous Approach (ICD-10-PCS; 2021-06-03)
PROC: 4A133J1 Monitoring of Arterial Pulse, Peripheral, Percutaneous Approach (ICD-10-PCS; 2021-06-03)
PROC: 06HY33Z Insertion of Infusion Device into Lower Vein, Percutaneous Approach (ICD-10-PCS; 2021-06-03)
PROC: 30233N1 Transfusion of Nonautologous Red Blood Cells into Peripheral Vein, Percutaneous Approach (ICD-10-PCS; 2021-06-04)
DX: I70.211 Atherosclerosis of native arteries of extremities with intermittent claudication, right leg (principal); J96.01 Acute respiratory failure with hypoxia; E87.2 Acidosis; R57.9 Shock, unspecified; N17.9 Acute kidney failure, unspecified; R13.10 Dysphagia, unspecified; I25.10 Atherosclerotic heart disease of native coronary artery without angina pectoris; C76.0 Malignant neoplasm of head, face and neck; Z66 Do not resuscitate; F17.210 Nicotine dependence, cigarettes, uncomplicated; I10 Essential (primary) hypertension; I51.3 Intracardiac thrombosis, not elsewhere classified; I99.8 Other disorder of circulatory system; I70.201 Unspecified atherosclerosis of native arteries of extremities, right leg; G89.29 Other chronic pain; R23.1 Pallor; M54.9 Dorsalgia, unspecified; R34 Anuria and oliguria; I71.4 Abdominal aortic aneurysm, without rupture; Z85.819 Personal history of malignant neoplasm of unspecified site of lip, oral cavity, and pharynx; Z95.5 Presence of coronary angioplasty implant and graft; Z79.899 Other long term (current) drug therapy
CPT/HCPCS: 36415; 36430; 36600; 71045; 73706; 74174; 80053; 80061; 80202; 81001; 82150; 82550; 82803; 82810; 82948; 83036; 83605; 83690; 83721; 83735; 84100; 84134; 84145; 84443; 85007; 85018; 85025; 85027; 85610; 85730; 86885; 86900; 86901; 86920; 87040; 87070; 87081; 87088; 87635; 92508; 92950; 93005; 93306; 94002; 94003; 94760; 96374; 96375; 99285; C1894; C9113; C9803; G0378; J0461; J0690; J1170; J1644; J1720; J2250; J2270; J2310; J2543; J3010; J3370; J3480; J3490; J7030; P9016; Q9967